=== PATIENT | female | born 1970 | race Caucasian/White ===

== ENCOUNTER 2016-03-31 07:47 | Outpatient (CLI) | payer BC | END 2016-03-31 19:29 | disposition home or self-care (01) | LOC: SMA 07:47 | PROVIDERS: ATTEND Family Medicine | DX: Z12.31 Encounter for screening mammogram for malignant neoplasm of breast (principal) | CPT/HCPCS: 77067; G0202 ==

== ENCOUNTER 2017-10-20 12:47 | Outpatient (CLI) | payer BC | END 2017-10-20 20:23 | disposition home or self-care (01) | LOC: SMA 12:47 | PROVIDERS: ATTEND Family Medicine | DX: Z12.31 Encounter for screening mammogram for malignant neoplasm of breast (principal); R92.1 Mammographic calcification found on diagnostic imaging of breast | CPT/HCPCS: 77067 ==

== ENCOUNTER 2017-11-24 12:52 | Outpatient (CLI) | payer BC | END 2017-11-24 18:15 | disposition home or self-care (01) | LOC: SUS 12:52 | PROVIDERS: ATTEND Family Medicine | DX: R92.8 Other abnormal and inconclusive findings on diagnostic imaging of breast (principal) | CPT/HCPCS: 76642 ==

== ENCOUNTER 2019-12-31 11:22 | Outpatient (CLI) | payer BC | END 2019-12-31 20:27 | disposition home or self-care (01) | LOC: SMA 11:22 | PROVIDERS: ATTEND Family Medicine | DX: Z12.31 Encounter for screening mammogram for malignant neoplasm of breast (principal) | CPT/HCPCS: 77067 ==

== ENCOUNTER 2020-01-09 09:57 | Outpatient (CLI) | payer BC | END 2020-01-09 20:53 | disposition home or self-care (01) | LOC: SUS 09:57 | PROVIDERS: ATTEND Family Medicine | DX: D24.2 Benign neoplasm of left breast (principal); R92.8 Other abnormal and inconclusive findings on diagnostic imaging of breast | CPT/HCPCS: 76641 ==

== ENCOUNTER → 2023-03-31 | Outpatient (CLI) | payer BC | END | disposition home or self-care (01) | LOC: SMA 09:31 | PROVIDERS: ATTEND Nurse Practitioner Family | DX: Z12.31 Encounter for screening mammogram for malignant neoplasm of breast (principal); N63.24 Unspecified lump in the left breast, lower inner quadrant; N63.21 Unspecified lump in the left breast, upper outer quadrant | CPT/HCPCS: 77067 ==

== ENCOUNTER 2023-05-19 12:44 | Outpatient (CLI) | payer BC | END 2023-05-19 20:55 | disposition home or self-care (01) | LOC: SUS 12:44 | PROVIDERS: ATTEND Nurse Practitioner Family | DX: N60.02 Solitary cyst of left breast (principal); R92.8 Other abnormal and inconclusive findings on diagnostic imaging of breast; N63.24 Unspecified lump in the left breast, lower inner quadrant; N64.89 Other specified disorders of breast; R92.323 Mammographic fibroglandular density, bilateral breasts | CPT/HCPCS: 76641; 77066 ==